=== PATIENT | female | born 1970 | race Caucasian/White ===

== ENCOUNTER 2018-01-06 04:51 | Emergency (ER) | payer OTHER ==
[2018-01-06 05:00] VITALS: BP 151/89; PULSE 98; RESP 18; TEMP 97.6
--- NOTE | 2018-01-06 05:12 | ED ---
General Adult HPI - General Chief complaint: Back Pain/Injury Stated complaint: IHS-hip injury Time Seen by Provider: 01/06/18 05:00 Source: patient, RN notes reviewed Mode of arrival: ambulatory Limitations: no limitations - History of Present Illness Initial comments: This a 47-year-old female who comes in complaining of hip pain however the patient points to her lower back. I mention to her that that is her lower back and not her hips she insists it's her hips. I then tell her that that is her lower back and I'm not going to tell her otherwise just because she wants to call something else. Patient then tells me that I shouldn't be correcting her because she is already nervous about being in the emergency department. I then told her that I'm going to use the appropriate anatomical name for what we are talking about. 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 - Related Data Allergies Allergy/AdvReac Type Severity Reaction Status Date / Time morphine Allergy Anaphylaxis Verified 01/06/18 05:01 Review of Systems ROS Statement: Those systems with pertinent positive or pertinent negative responses have been documented in the HPI. ROS Other: All systems not noted in ROS Statement are negative. Past Medical History Past Medical History: Hypertension History of Any Multi-Drug Resistant Organisms: None Reported Additional Past Surgical History / Comment(s): Sternal clavicle repair, Abd surgery Past Psychological History: No Psychological Hx Reported Smoking Status: Never smoker Past Alcohol Use History: None Reported Past Drug Use History: None Reported General Exam Limitations: no limitations Course Vital Signs 01/06/18 04:57 Temperature 97.6 F Pulse Rate 98 Respiratory 18 Rate Blood Pressure 151/89 O2 Sat by Pulse 96 Oximetry Disposition Clinical Impression: Lower back pain Disposition: Left Against Medical Advice Referrals: None,Stated [Primary Care Provider] - 1-2 days Time of Disposition: 05:12
== END 2018-01-06 05:08 | disposition left against medical advice (07) ==
LOC: EC 04:51
DX: M54.5 Low back pain (principal); Z88.5 Allergy status to narcotic agent
CPT/HCPCS: 99282